=== PATIENT | female | born 1990 | race Caucasian/White ===

== ENCOUNTER 2022-03-03 10:02 | Emergency (ER) | payer OTHER ==
[~2022-03-03] VITALS: Ht 165.1 cm; Wt 57.3 kg
[2022-03-03] MEDS ORDERED: MULTTAB20 PO (10:39)
[2022-03-03] MEDS ORDERED: CEPH500C PO (11:22)
[2022-03-03 11:36] VITALS: BP 110/60
== END 2022-03-03 11:37 | disposition home or self-care (01) ==
LOC: M ED 10:02
DX: N61.22 Granulomatous mastitis, left breast (principal); Z88.0 Allergy status to penicillin

== ENCOUNTER → 2022-04-16 | Outpatient (CLI) | payer OTHER ==
[~2022-04-16] MED LIST: CEPH500C PO; MULTTAB20 PO
[2022-04-16 13:32] LABS: BASO # 0.1 10^3/uL (0.0-0.2); BASO % 0.9 % (0.0-1.0); EOS # 0.2 10^3/uL (0.0-0.5); EOS % 2.7 % (0.0-3.0); HEMATOCRIT 43.6 % (36.0-47.0); HEMOGLOBIN 14.1 g/dl (12.0-15.5); LYMPH # 2.6 10^3/uL (1.5-5.0); LYMPH % 37.7 % (24.0-44.0); MEAN CORPUSCULAR HEMOGLOBIN 28.8 pg (27.0-33.0); MEAN CORPUSCULAR HGB CONC 32.3 g/dl (32.0-36.5); MONO # 0.5 10^3/uL (0.0-0.8); MONO % 7.4 % (2.0-8.0); NEUTROPHILS # 3.5 10^3/uL (1.5-8.5); NEUTROPHILS % 51.2 % (36.0-66.0); PLATELET COUNT, AUTOMATED 239 10^3/uL (150-450); WHITE BLOOD COUNT 6.8 10^3/uL (4.0-10.0)
[2022-04-16 14:28] LABS: ALBUMIN 4.1 GM/DL (3.2-5.2); ALT/SGPT 34 U/L (12-78); BILIRUBIN,TOTAL 0.6 MG/DL (0.2-1.0); BLOOD UREA NITROGEN 12 MG/DL (7-18); CALCIUM LEVEL 9.2 MG/DL (8.5-10.1); CARBON DIOXIDE LEVEL 30 MEQ/L (21-32); CHLORIDE LEVEL 108 MEQ/L (98-107); CHOLESTEROL LEVEL 200 MG/DL (<200); CHOLESTEROL RISK RATIO 2.531 (<5); CREATININE FOR GFR 0.83 MG/DL (0.55-1.30); GLOMERULAR FILTRATION RATE > 60.0 (>60); GLUCOSE, FASTING 89 MG/DL (70-100); HDL CHOLESTEROL 79 MG/DL (>40); LDL CHOLESTEROL 108 MG/DL (<100); NON-HDL-C 121 MG/DL; POTASSIUM SERUM 3.9 MEQ/L (3.5-5.1); SODIUM LEVEL 142 MEQ/L (136-145); TOTAL PROTEIN 7.3 GM/DL (6.4-8.2); TRIGLYCERIDES LEVEL 65 MG/DL (<150)
[2022-04-16 21:36] LABS: HEMOGLOBIN A1c 5.1 %
== END ==
LOC: M WUC 09:23
PROVIDERS: ATTEND Student in an Organized Health Care Education/Training Program
DX: E28.2 Polycystic ovarian syndrome (principal)

== ENCOUNTER → 2023-01-07 | Outpatient (CLI) | payer OTHER ==
[2023-01-08 06:09] LABS: MUMPS VIRUS IgG ANTIBODY 54.7 AU/mL (Immune >10.9)
== END ==
LOC: M WUC 10:38
PROVIDERS: ATTEND Student in an Organized Health Care Education/Training Program
DX: Z01.84 Encounter for antibody response examination (principal)
CPT/HCPCS: 36415; 86735; 86762; 86765; 90471; 90734; G0463

== ENCOUNTER → 2024-01-28 | Outpatient (REF) | payer OTHER | LOC: M LAB REF 11:50 | PROVIDERS: ATTEND Physician Assistant | DX: R19.7 Diarrhea, unspecified (principal) ==

== ENCOUNTER → 2024-03-18 | Outpatient (CLI) | payer OTHER | LOC: M SOG 14:11 | PROVIDERS: ATTEND Physician Assistant | DX: M25.531 Pain in right wrist (principal) ==

== ENCOUNTER 2024-04-08 08:41 | Day surgery (SDC) | payer OTHER ==
[~2024-04-08] VITALS: Ht 165.1 cm; Wt 63.8 kg
[~2024-04-08 08:41] MED LIST changes: +METH36TA6 PO
[2024-04-08] MEDS ORDERED: LIDOCAINE 1% SDV 5ML VIAL SC PRN (08:45)
[2024-04-08] MEDS ORDERED: NS 1,000 ML IV SCH (08:45)
[2024-04-08] MEDS ORDERED: ONDANSETRON 4MG 2ML VIAL As Ordered ONE (10:04)
[2024-04-08] MEDS ORDERED: LIDOCAINE 2% 100MG/5ML SDV (FOR ANES.) As Ordered ONE (10:04)
[2024-04-08] MEDS ORDERED: propofoL 200 MG/20 ML VIAL As Ordered ONE (10:04)
[2024-04-08] MEDS ORDERED: fentaNYL 100 MCG/2 ML INJECTION As Ordered ONE (10:05)
[2024-04-08] MEDS ORDERED: MIDAZOLAM INJ 2MG/2ML VIAL As Ordered ONE (10:05)
[2024-04-08] MEDS ORDERED: ACETAMINOPHEN 1000MG 100ML IV BAG As Ordered ONE (10:05)
[2024-04-08] MEDS: ceFAZolin 2 GM/D5W 50 ML IV BAG As Ordered ONE (10:45)
[2024-04-08] MEDS ORDERED: KETOROLAC 60MG 2ML VIAL As Ordered ONE (11:20)
[2024-04-08] MEDS: BACITRACIN OINTMENT 30GM TUBE As Ordered ONE (11:25)
[2024-04-08 11:59] VITALS: BP 139/85; TEMP 97.3; O2SAT 98
== END 2024-04-08 12:03 | disposition home or self-care (01) ==
LOC: M SDC 08:41
PROVIDERS: ATTEND Orthopaedic Surgery Hand Surgery
DX: M67.431 Ganglion, right wrist (principal); G43.909 Migraine, unspecified, not intractable, without status migrainosus; M16.0 Bilateral primary osteoarthritis of hip; K21.9 Gastro-esophageal reflux disease without esophagitis; Z79.899 Other long term (current) drug therapy; Z90.89 Acquired absence of other organs; Z88.0 Allergy status to penicillin
CPT/HCPCS: 25111; 81025; 88307; J0131; J0665; J0690; J1100; J1885; J2250; J2405; J3010